=== PATIENT | male | born 1965 | race Caucasian/White ===

== ENCOUNTER 2019-04-11 04:04 | Emergency (ER) | payer SELFPAY ==
[~2019-04-11] VITALS: Ht 185.4 cm; Wt 99.8 kg
[2019-04-11] MEDS ORDERED: OMEP20ER PO (04:25)
[2019-04-11 04:46] LABS: BASOPHILS ABSOLUTE AUTO 0.04 K/mm3 (0.00-0.23); BASOPHILS PERCENT AUTO 0 % (0-2); EOSINOPHILS ABSOLUTE AUTO 0.05 K/mm3 (0.00-0.68); EOSINOPHILS PERCENT AUTO 0 % (0-6); Hematocrit 45.1 % (37.0-53.0); Hemoglobin 14.5 g/dL (13.5-17.5); IMMATURE GRAN ABSOLUTE AUTO 0.03 K/mm3 (0.00-0.10); IMMATURE GRAN PERCENT AUTO 0 % (0-1); LYMPHOCYTES ABSOLUTE AUTO 0.95 K/mm3 (0.84-5.20); LYMPHOCYTES PERCENT AUTO 8 % (21-46); MONOCYTES ABSOLUTE AUTO 1.04 K/mm3 (0.16-1.47); MONOCYTES PERCENT AUTO 9 % (4-13); Mean Corpuscular HGB 30.2 pg (26.0-34.0); Mean Corpuscular HGB Conc 32.2 g/dL (31.5-36.5); Mean Corpuscular Volume 94 fL (80-100); Mean Platelet Volume 11.6 fL (9.1-12.4); NEUTROPHILS ABSOLUTE AUTO 9.59 K/mm3 (1.96-9.15); NEUTROPHILS PERCENT AUTO 82 % (41-73); Platelet Count 226 K/mm3 (150-400); RDW Coefficient Variation 13.3 % (11.7-14.2); RDW Standard Deviation 46.3 fL (35.1-46.3)
[2019-04-11 05:07] LABS: Alanine Aminotransfer (ALT/SGP 17 U/L (12-78); Albumin, Blood 4.1 g/dL (3.4-5.0); Albumin/Globulin Ratio 1.1 (0.8-1.8); Alk Phos 99 U/L (50-136); Anion Gap 7 mmol/L (6-16); Aspartate Aminotrans (AST/SGOT 19 U/L (12-37); Bilirubin, Total 0.4 mg/dL (0.1-1.0); Blood Urea Nitrogen 26 mg/dL (8-24); Bun/Creatinine Ratio 26.2 (12.0-20.0); CO2, Blood 27 mmol/L (21-32); Chloride, Blood 108 mmol/L (98-108); Creatinine, Blood 0.99 mg/dL (0.60-1.20); Globulin, Blood 3.6 g/dL (2.2-4.0); Glomerular Filtration Rate >60 (60-); Glucose, Blood 118 mg/dL (70-99); Potassium, Blood 3.9 mmol/L (3.5-5.5); Sodium, Blood 142 mmol/L (136-145); Total Protein, Blood 7.7 g/dL (6.4-8.2)
[2019-04-11] MEDS ORDERED: ONDA4ODT MM (06:11)
[2019-04-11] MEDS ORDERED: Norco 10-325 T1 EACH PO (06:11)
== END 2019-04-11 06:31 | disposition home or self-care (01) ==
LOC: ER 04:04
PROVIDERS: Emergency Medicine
DX: N13.2 Hydronephrosis with renal and ureteral calculous obstruction (principal); I10 Essential (primary) hypertension; F17.200 Nicotine dependence, unspecified, uncomplicated; Z79.899 Other long term (current) drug therapy
CPT/HCPCS: 74176; 80053; 83690; 84484; 85025; 93005; 93010; 96361; 96374; 96375; 99284-25; A9270; A9270-GY; J0360; J1170; J1885; J2405; J7030

== ENCOUNTER → 2019-08-16 | Outpatient (CLI) | payer OTHER ==
[~2019-08-16] MED LIST: Norco 10-325 T1 EACH PO; OMEP20ER PO; ONDA4ODT MM
== END | disposition home or self-care (01) ==
LOC: LAB SHORT 15:03 → LAB 15:03
PROVIDERS: Internal Medicine Interventional Cardiology
DX: I10 Essential (primary) hypertension (principal)
CPT/HCPCS: 81050; 82088

== ENCOUNTER 2019-11-19 12:23 | Emergency (ER) | payer OTHER ==
[~2019-11-19] VITALS: Ht 185.4 cm; Wt 111.1 kg
[2019-11-19 15:12] LABS: BASOPHILS ABSOLUTE AUTO 0.03 K/mm3 (0.00-0.23); BASOPHILS PERCENT AUTO 0 % (0-2); EOSINOPHILS ABSOLUTE AUTO 0.08 K/mm3 (0.00-0.68); EOSINOPHILS PERCENT AUTO 1 % (0-6); Hemoglobin 14.1 g/dL (13.5-17.5); IMMATURE GRAN ABSOLUTE AUTO 0.04 K/mm3 (0.00-0.10); IMMATURE GRAN PERCENT AUTO 0 % (0-1); LYMPHOCYTES ABSOLUTE AUTO 1.64 K/mm3 (0.84-5.20); LYMPHOCYTES PERCENT AUTO 17 % (21-46); MONOCYTES ABSOLUTE AUTO 0.99 K/mm3 (0.16-1.47); MONOCYTES PERCENT AUTO 10 % (4-13); Mean Corpuscular HGB 30.1 pg (26.0-34.0); Mean Corpuscular HGB Conc 32.8 g/dL (31.5-36.5); Mean Corpuscular Volume 92 fL (80-100); NEUTROPHILS ABSOLUTE AUTO 6.74 K/mm3 (1.96-9.15); NEUTROPHILS PERCENT AUTO 71 % (41-73); Platelet Count 318 K/mm3 (150-400); RDW Coefficient Variation 14.1 % (11.7-14.2); RDW Standard Deviation 47.2 fL (35.1-46.3); Red Blood Cell Count 4.68 M/mm3 (4.30-5.90); White Blood Cell Count 9.52 K/mm3 (4.00-11.30)
[2019-11-19 15:39] LABS: Alanine Aminotransfer (ALT/SGP 16 U/L (12-78); Albumin, Blood 4.3 g/dL (3.4-5.0); Albumin/Globulin Ratio 1.2 (0.8-1.8); Alk Phos 80 U/L (50-136); Anion Gap 8 mmol/L (6-16); Aspartate Aminotrans (AST/SGOT 11 U/L (12-37); Bilirubin, Total 0.3 mg/dL (0.1-1.0); Blood Urea Nitrogen 29 mg/dL (8-24); Bun/Creatinine Ratio 22.7 (12.0-20.0); CO2, Blood 22 mmol/L (21-32); Chloride, Blood 110 mmol/L (98-108); Creatinine, Blood 1.28 mg/dL (0.60-1.20); Globulin, Blood 3.7 g/dL (2.2-4.0); Glomerular Filtration Rate >60 (60-); Glucose, Blood 99 mg/dL (70-99); Potassium, Blood 4.1 mmol/L (3.5-5.5); Sodium, Blood 140 mmol/L (136-145)
[2019-11-19] MEDS ORDERED: Cephalexin500 MG PO (16:27)
[2019-11-19] MEDS ORDERED: HYDR1TAB94 PO (16:38)
[2019-11-19] MEDS ORDERED: Norco 5-325 Ta1 EACH PO (16:56)
== END 2019-11-19 17:08 | disposition home or self-care (01) ==
LOC: ER 12:23
PROVIDERS: Physician Assistant
DX: L03.113 Cellulitis of right upper limb (principal); H66.93 Otitis media, unspecified, bilateral; F17.200 Nicotine dependence, unspecified, uncomplicated; Z79.899 Other long term (current) drug therapy
CPT/HCPCS: 36415; 73070; 80053; 85025; 99283-25